=== PATIENT | male | born 1985 | race African-American/Black ===

== ENCOUNTER 2023-07-30 14:23 | Emergency (ER) | payer MEDICAID ==
[~2023-07-30] VITALS: Ht 193 cm; Wt 79.4 kg
[2023-07-30 14:49] VITALS: BP_SYST 138; PULSE 55; RESP 20; TEMP 98; O2SAT 98
[2023-07-30] MEDS ORDERED: ACETAMINOPHEN 500 MG TABLET PO ONE (15:30)
[2023-07-30] MEDS ORDERED: LIDOCAINE PATCH 5% 1 EA TP ONE (15:30)
[2023-07-30] MEDS ORDERED: CYCLOBENZAPRINE HCL 10 MG TABLET (FLEXERIL) PO ONE (15:30)
[2023-07-30] MEDS ORDERED: KETOROLAC TROMETHAMINE 30 MG VIAL IM ONE (15:30)
[2023-07-30] MEDS ORDERED: ACET-2634 PO (16:23)
[2023-07-30] MEDS ORDERED: CYCL10TA24 PO (16:23)
[2023-07-30] MEDS ORDERED: LIDO1ADH22 TP (16:23)
[2023-07-30] MEDS ORDERED: NAPR-1172 PO (16:23)
[2023-07-30] MEDS ORDERED: HYDR-3917 PO (16:23)
[2023-07-30 16:25] VITALS: BP_SYST 126; PULSE 62; RESP 18; TEMP 98; O2SAT 100
== END 2023-07-30 16:25 | disposition home or self-care (01) ==
LOC: SED 14:23
DX: M76.32 Iliotibial band syndrome, left leg (principal); M79.662 Pain in left lower leg; Z79.899 Other long term (current) drug therapy
CPT/HCPCS: 99284; 96372; J1885

== ENCOUNTER 2023-09-14 11:05 | Emergency (ER) | payer MEDICAID ==
[~2023-09-14] VITALS: Ht 190.5 cm; Wt 79.4 kg
[2023-09-14 11:05] VITALS: BP_SYST 117; PULSE 68; RESP 18; TEMP 97.7; O2SAT 95
[~2023-09-14 11:05] MED LIST: ACET-2634 PO; CYCL10TA24 PO; HYDR-3917 PO; LIDO1ADH22 TP; NAPR-1172 PO
[2023-09-14] MEDS ORDERED: lidoderm (11:32)
[2023-09-14] MEDS ORDERED: [UNRECOGNIZED DRUG - OTHER] (11:32)
== END 2023-09-14 11:59 | disposition home or self-care (01) ==
LOC: SED 11:05
DX: M54.30 Sciatica, unspecified side (principal); M54.50 Low back pain, unspecified; M79.605 Pain in left leg; Z79.899 Other long term (current) drug therapy
CPT/HCPCS: 99283